=== PATIENT | male | born 1975 | race Two or more races ===

== ENCOUNTER 2022-05-13 15:51 | Outpatient (REF) | payer MEDICAID, SELFPAY ==
--- NOTE | ~2022-05-13 | US_ITS ---
EXAMINATION: US RETROPERITONEAL LIMITED (RENAL ONLY) CLINICAL INFORMATION: Flank pain. History of kidney stones. COMPARISON: None TECHNIQUE: Real-time imaging of the kidneys. FINDINGS: RIGHT KIDNEY: 10.4 x 5.8 x 5.5 cm (SAG x AP x TRV). The kidney is normal in size, contour, and echogenicity. Renal cortical thickness is normal. No focal parenchymal lesions or hydronephrosis. Approximately 3 mm upper and lower pole calyceal nonobstructing calculi. LEFT KIDNEY: 10.2 x 5.6 x 5.0 cm (SAG x AP x TRV). The kidney is normal in size, contour, and echogenicity. Renal cortical thickness is normal. No focal parenchymal lesions or hydronephrosis. Multiple stones seen largest measuring up to 7 mm centrally US/US renal BI IMPRESSION: Bilateral nonobstructing renal calculi. No hydronephrosis.
== END 2022-05-13 15:52 | disposition home or self-care (01) ==
LOC: HO.US 15:51
PROVIDERS: PCP Nurse Practitioner Primary Care; Visit Provider Nurse Practitioner Primary Care
DX: R10.9 Unspecified abdominal pain (principal); Z87.442 Personal history of urinary calculi
CPT/HCPCS: 76775

== ENCOUNTER 2022-11-14 16:01 | Outpatient (REF) | payer MEDICAID, SELFPAY ==
[2022-11-18 07:28] LABS: TS Negative Control Passed; TS Panel A 4; TS Panel B 1; TS Positive Control Passed; TSpotTB Negative (Negative)
== END 2022-11-14 16:02 | disposition home or self-care (01) ==
LOC: HO.HHCL 16:01
PROVIDERS: Visit Provider Nurse Practitioner Primary Care
DX: Z11.1 Encounter for screening for respiratory tuberculosis (principal)
CPT/HCPCS: 36415; 86481

== ENCOUNTER 2023-11-13 16:03 | Outpatient (REF) | payer MEDICAID, SELFPAY ==
[2023-11-14 09:36] LABS: H Pylori Breath Test Negative (Negative)
== END 2023-11-13 16:04 | disposition home or self-care (01) ==
LOC: HO.LNP 16:03
PROVIDERS: Visit Provider Nurse Practitioner Primary Care
DX: K21.9 Gastro-esophageal reflux disease without esophagitis (principal)
CPT/HCPCS: 83013

== ENCOUNTER → 2024-09-14 10:40 | Outpatient (REF) | payer MEDICAID, SELFPAY ==
--- OUTSIDE RECORDS SUMMARY | 2024-09-14 11:43 | XMS_ITS | Encounter Summary ---
Author Organization [employer] Address [address] [facility] 7t [place] [address] Care Team Providers Care Back End Architect Name Role Phone Sophie Johnson Primary Care Provider [phone] Encounter Details Date Type Department Care Team (Latest Contact Info) Description 05/27/2019 Abstract [facility] CONVERSIONS Dental, Provider, DDS Social History Tobacco Use Types Packs/Day Years Used Date Smoking Tobacco: Never Assessed Sex and Gender Information Value Date Recorded Sex Assigned at Male 03/03/2022 10:19 AM EDT Legal Sex Male 10:19 AM EDT Gender Identity Male 03/03/2022 10:19 AM EDT Sexual Orientation Straight 03/03/2022 10 :19 AM EDT documented as of this encounter Plan of Treatment Upcoming Encounters Date Type Department Care Team (Late st Contact Info) Description 11/23/2024 3:45 PM EDT Office Visit [facility] MEDICINE [address] [place] [address] Sophie Johnson ANP [address] [place] [address] documented as of this encounter Visit Diagnoses Not on filedocumented in this encounter Care Teams Back End Architect Relationship Specialty Start Date End Date Sophie Johnson ANP [address] [place] [address] PCP - General Family Medicine 03/25/19 documented as of this encounter
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
--- OUTSIDE RECORDS SUMMARY | 2024-09-14 11:44 | XMS_ITS | Encounter Summary ---
Author Organization [employer] Address [address] [facility] 7t [place] [address] Care Team Providers Care Vice President Of Customer Service Name Role Phone Sophie Johnson Primary Care Provider [phone] Encounter Details Date Type Department Care Team (Latest Contact Info) Description 02/04/2022 Abstract [facility] CONVERSIONS Dental, Provider, DDS Social History [...] Description 11/23/2024 3:45 PM EDT Office Visit [facility] [address] [place] [address] Sophie Johnson ANP [address] [place] [address] documented as of this encounter Visit Diagnoses Not on filedocumented in this encounter Care Teams Vice President Of Customer Service Relationship Specialty Start Date End Date Sophie Johnson ANP [address] [place] [address] PCP - General Family Medicine 03/25/19 documented as of this encounter
== END ==
LOC: HO.SL 10:40
PROVIDERS: PCP Nurse Practitioner Primary Care; Visit Provider Nurse Practitioner Primary Care
DX: R06.81 Apnea, not elsewhere classified (principal)
CPT/HCPCS: 95806

== ENCOUNTER → 2024-09-14 19:00 | Outpatient (BNV) | payer MEDICAID, SELFPAY | PROVIDERS: PCP Nurse Practitioner Primary Care; Visit Provider Internal Medicine | DX: G47.33 Obstructive sleep apnea (adult) (pediatric) (principal) | CPT/HCPCS: 95806 ==